=== PATIENT | male | born 1945 ===

== ENCOUNTER 2022-04-24 18:44 | Outpatient (REF) | payer MEDICARE, SELFPAY ==
--- NOTE | 2022-04-24 16:15 | PAPNONF_PTH ---
PATIENT: Kaden Bai LOC: [facility] U#:[id number] AGE/SX: 77/M ROOM: RE04/24/[address]: FRANCHESKA VALENCIA : 1945 BED: DIS: 04/24/2022 SPEC #: [id number] RECD: 04/25/22 13:16 STATUS: GISEL FRANCIS #: [id number] REBA: 04/24/22 16:[address]: FRANCHESKA VALENCIA DEPT: [facility] Cytology RECD BY: Magda Whitlock ENTERED: 04/25/22 13:17 SP TYPE: MARSHA ROTH DR: None Tissues: 1 - BODY FLUID CYTO(SPUTUM/URINE)[facility] Procedures: BODY FLUID CYTO(URINE/SPUTUM) Comments: [id number] (TOTAL VOLUME = 50 ml) (50 ml URINE & 50 ml CYTOLYT ADDED)
[2022-04-24 21:21] LABS: Bacteria Negative HPF (Negative); C & S Indicated? C&S Done As Ordered; Crystals Negative HPF (Negative); Epithelial Cells Negative HPF (Negative); Mucus Moderate (Negative); RBC 0-2 HPF (0-2); WBC 0-2 HPF (0-5)
== END 2022-04-24 18:45 | disposition home or self-care (01) ==
LOC: LBN 18:44
PROVIDERS: Visit Provider Nurse Practitioner Family
DX: R30.0 Dysuria (principal); R82.998 Other abnormal findings in urine
CPT/HCPCS: 81015; 87086; 88104